=== PATIENT | female | born 1970 | race Caucasian/White ===

== ENCOUNTER 2021-06-30 22:20 | Emergency (ER) | payer SELFPAY ==
[~2021-06-30] VITALS: Ht 162.6 cm; Wt 49.9 kg
[2021-06-30 22:30] VITALS: BP 150/90
--- NOTE | 2021-06-30 22:33 | NUR ---
TO LOBBY A/W BED AMBULATORY
--- NOTE | 2021-07-01 00:05 | NUR ---
seen and examined by vishal with orders and carried out.
[2021-07-01 02:09] LABS: APPEARANCE,URINE CLEAR (CLEAR); BILIRUBIN,URINE NEGATIVE (NEGATIVE); BLOOD, URINE NEGATIVE (NEGATIVE); COLOR,URINE YELLOW (YELLOW); LEUKOCYTE ESTERASE ,URINE NEGATIVE (NEGATIVE); NITRITE, URINE NEGATIVE (NEGATIVE); PH,URINE 6.5 (5.0-9.0); UGLUCOSE 3+ (NEGATIVE)
[2021-07-01] MEDS ORDERED: KETOROLAC 15 MG/ML VIAL IM ONE (02:10)
[2021-07-01] MEDS ORDERED: methocarbamoL 500 MG TAB PO ONE (02:10)
--- NOTE | 2021-07-01 02:20 | NUR ---
medicated as per ERMDSorder , tolerated well.
[2021-07-01 02:59] LABS: RBC,URINE 0-5 /HPF (0-5); WBC,URINE 0-5 /HPF (0-5)
[2021-07-01] MEDS ORDERED: METH-1681 PO (04:55)
[2021-07-01 05:17] VITALS: BP 150/90
--- NOTE | 2021-07-01 05:18 | NUR ---
Patient discharged with v/s stable. Written and verbal after care instructions given and explained. Patient verbalized understanding. Ambulatory with steady gait. All questions addressed prior to discharge. Advised to follow up with PMD.
== END 2021-07-01 05:17 | disposition home or self-care (01) ==
LOC: MED 22:20
DX: M54.5 Low back pain (principal); M54.6 Pain in thoracic spine; R22.42 Localized swelling, mass and lump, left lower limb; Z79.899 Other long term (current) drug therapy
CPT/HCPCS: 72100; 81001; 87086; 93971; 96372; 99285; J1885; Q0092

== ENCOUNTER 2021-12-05 20:00 | Emergency (ER) | payer SELFPAY ==
[~2021-12-05] VITALS: Ht 154.9 cm; Wt 49.9 kg
[~2021-12-05 20:00] MED LIST: METH-1681 PO
[2021-12-05 20:05] VITALS: BP 150/88
--- NOTE | 2021-12-05 20:05 | NUR ---
TO BED AMBULATORY
--- NOTE | 2021-12-05 20:22 | NUR ---
PATIENT DOES NOT WANT TO URINATE OR SPECIMEN COLLECTION. STATES ONLY WANT PAIN MEDS
[2021-12-05] MEDS ORDERED: MORPHINE SULFATE 4 MG/ML SYR IM ONE (20:25)
[2021-12-05] MEDS ORDERED: ACET-8386 PO (20:29)
[2021-12-05] MEDS ORDERED: IBUP-2213 PO (20:29)
--- NOTE | 2021-12-05 20:44 | NUR ---
PATIENT CLEARED FOR DISHCARGE AT THSI TIME. ADVISED TO FOLLOW UP WITH PCP AND RETURN IF CONDITION WORSENS. NO OTHER COMPLAINTS OR CONCRENS AT THIS TIME FOLLOWING DISHCARGE TEACHING
[2021-12-05 20:46] VITALS: BP 150/88
== END 2021-12-05 20:44 | disposition home or self-care (01) ==
LOC: MED 20:00
DX: M54.50 Low back pain, unspecified (principal); G89.29 Other chronic pain; E11.9 Type 2 diabetes mellitus without complications; I10 Essential (primary) hypertension; Z90.49 Acquired absence of other specified parts of digestive tract; Z79.899 Other long term (current) drug therapy
CPT/HCPCS: 96372; 99283; J2270